=== PATIENT | female | born 1990 | race Caucasian/White ===

== ENCOUNTER 2018-08-15 19:40 | Emergency (ER) | payer OTHER ==
[2018-08-15 20:05] VITALS: BP 121/68; PULSE 88; TEMP 98.2; BMI 25.5
--- NOTE | 2018-08-15 20:06 | PDOC ---
Rapid Medical Evaluation Time Seen by Provider: 08/15/18 20:02 Medical Evaluation: 08/15/18 20:05 I have performed a brief in-person evaluation of this patient. The patient presents with a chief complaint of: sorethroat x 2-3 days worse today. Reports fever and pain in throat. Denies chills Pertinent physical exam findings: NAD HEENT: +erythematous pharynx with exudate even and unlabored breathing I have ordered the following: throat culture The patient will proceed to the ED for further evaluation.
--- NOTE | 2018-08-15 22:01 | PDOC ---
History of Present Illness - General Chief Complaint: Sore Throat Stated Complaint: STREP THROAT Time Seen by Provider: 08/15/18 20:02 - History of Present Illness Initial Comments: 08/15/18 21:58 28-year-old female without comorbidities presents for evaluation of sore throat 6 days. Past History - Past Medical History Allergies/Adverse Reactions: Allergies Allergy/AdvReac Type Severity Reaction Status Date / Time No Known Allergies Allergy Verified 08/15/18 20:05 Home Medications: Ambulatory Orders NK [No Known Home Medication] 08/15/18 COPD: No - Suicide/Smoking/Psychosocial Hx Smoking History: Never smoked Review of Systems - Review of Systems Constitutional: No: Fever HEENTM: Yes: Throat Pain *Physical Exam - Vital Signs Last Vital Signs Temp Pulse Resp BP Pulse Ox 98.2 F 88 18 121/68 100 08/15/18 20:02 08/15/18 20:02 08/15/18 20:02 08/15/18 20:02 08/15/18 20:02 - Physical Exam Comments: 08/15/18 21:59 HEAD: NC/AT EYES: Conjuntiva clear Ears: Canals and TM's normal NOSE: No d/c THROAT: Moist mucous membrances, oral pharanx erythemic with exudate, uvula midline NECK: Supple without adenopathy CARDIAC: S1 S2 LUNGS: CTA Full and Equal breath sounds ABDOMEN: Soft NT ND MS: Full ROM in all joints without edema NEUROLOGIC: No gross sensory or motor deficits, NVID SKIN: Normal color and temperature no lesions or rashes Moderate Sedation - Procedure Monitoring Vital Signs: Procedure Monitoring Vital Signs Temperature 98.2 F 08/15/18 20:02 Pulse Rate 88 08/15/18 20:02 Respiratory Rate 18 08/15/18 20:02 Blood Pressure 121/68 08/15/18 20:02 O2 Sat by Pulse Oximetry (%) 100 08/15/18 20:02 Medical Decision Making - Medical Decision Making 08/15/18 21:59 Based on history strep is unlikely. Patient is traveling to [place] tomorrow she will call for mono results. *DC/Admit/Observation/Transfer Diagnosis at time of Disposition: Acute pharyngitis - Discharge Dispostion Disposition: HOME Condition at time of disposition: Stable Decision to Admit order: No - Referrals Referrals: Evelin Connell MD [Primary Care Provider] - - Patient Instructions Printed Discharge Instructions: Viral Pharyngitis, DI for Viral Pharyngitis Additional Instructions: Tylenol and Motrin as directed for pain. Return to the emergency room should symptoms worsen or go unresolved. Please follow-up with your primary care physician once 2 days for further evaluation and treatment options. If strep test today was negative a mono test was done. Warm salt water gargles multiple times a day will help with your throat pain. - Post Discharge Activity
== END 2018-08-15 22:12 | disposition home or self-care (01) ==
LOC: JERFT 19:40
DX: J02.9 Acute pharyngitis, unspecified (principal)
CPT/HCPCS: 36415; 86308; 87070; 87077; 87880; 99281-25